=== PATIENT | female | born 1990 | race Two or more races ===

== ENCOUNTER 2020-01-09 23:59 | Emergency (ER) | payer BC ==
[~2020-01-09] VITALS: Ht 162.6 cm; Wt 77.1 kg
[2020-01-10 00:17] VITALS: BP 118/73
--- NOTE | 2020-01-10 00:18 | NUR ---
Nurse Note: Pt walked in c/o LT eye blurriness since AM. Pt stated she feels something in her LT eye. Pt stated she took her contacts out and flushed with solution but not effective. Visual acuitity completed. All safety measures met; will continue to monitor.
[2020-01-10] MEDS ORDERED: Tetracaine 0.5% Opth 4ml Soln LEFT EYE ONE (00:30)
[2020-01-10] MEDS ORDERED: Fluorescein Strips LEFT EYE ONE (00:30)
--- NOTE | 2020-01-10 00:54 | NUR ---
Nurse Note: tetracaine/fluorescin at bedside. ERMD aware and at pt bedside. All safety measures met; will continue to monitor.
[2020-01-10] MEDS ORDERED: OCUFLOX5 ML LEFT EYE (00:58)
[2020-01-10 01:05] VITALS: BP 118/73
--- NOTE | 2020-01-10 01:05 | NUR ---
ED Nurse Note: Pt cleared by health care Provider for discharge. DC instructions/prescription was given and explained to pt and verbalized understanding of teachings. All medical deviecs such as ID band removed. Pt is AAO x4, ambulatory and left with all personal belongings.
--- NOTE | 2020-01-10 01:07 | Emergency Room Report ---
History of Present Illness General Chief Complaint: Eye Problems Source: Patient Present Illness HPI 29-year-old female presents complaining of eye pain. Notes that she feels something in her left eye since this morning. Took out her contact but still feels the sensation. Dull, 5 out of 10, nonradiating. Denies any tearing or discharge. Denies any photophobia. Denies any change in visual acuity. No other aggravating relieving factors. Denies any other associated symptoms Allergies: Coded Allergies: No Known Allergies (Unverified , 01/10/20) COVID-19 Screening Contact w/high risk pt: No Recent Travel to affected area: No Experienced COVID-19 symptoms?: No COVID-19 Testing performed [employer]: No Patient History Past Medical History: none Past Surgical History: none Pertinent Family History: none Social History: Denies: smoking, alcohol use, drug use Now: No Immunizations: UTD Reviewed Nursing Documentation: PMH: Agreed; PSxH: Agreed Nursing Documentation-PMH Past Medical History: No Stated History Review of Systems All Other Systems: negative except mentioned in HPI Physical Exam Vital Signs Date Time Temp Pulse Resp B/P (MAP) Pulse Ox O2 Delivery O2 Flow Rate FiO2 01/10/20 00:06 98.4 81 16 118/73 (88) 97 Room Air Sp02 EP Interpretation: reviewed, normal General Appearance: no apparent distress, alert, GCS 15, non-toxic Head: normocephalic, atraumatic Eyes: bilateral eye normal inspection, bilateral eye PERRL, bilateral eye EOMI , bilateral eye visual acuity ENT: hearing grossly normal, normal pharynx, no angioedema, normal voice Neck: full range of motion, supple/symm/no masses Respiratory: chest non-tender, lungs clear, normal breath sounds, speaking full sentences Cardiovascular #1: regular rate, rhythm, no edema Cardiovascular #2: 2+ carotid (R), 2+ carotid (L), 2+ radial (R), 2+ radial (L) , 2+ dorsalis pedis (R), 2+ dorsalis pedis (L) Gastrointestinal: normal bowel sounds, non tender, soft, non-distended, no guarding, no rebound Rectal: deferred Genitourinary: normal inspection, no CVA tenderness Musculoskeletal: back normal, normal range of motion, gait/station normal, non- tender Neurologic: alert, motor strength/tone normal, oriented x3, sensory intact, responsive, speech normal Psychiatric: judgement/insight normal, memory normal, mood/affect normal, no suicidal/homicidal ideation Reflexes: 3+ bicep (R), 3+ bicep (L), 3+ tricep (R), 3+ tricep (L), 3+ knee (R) , 3+ knee (L) Skin: no rash Lymphatic: no adenopathy Medical Decision Making Diagnostic Impression: Primary Impression: Sensation of foreign body in eye ER Course Hospital Course 29-year-old female presents to ED with left eye pain, feel something in his eye Differential diagnoses include: conjunctivitis, traumatic iritis, foreign body, corneal abrasion Clinical course Patient placed on stretcher. After initial history, I applied tetracaine and Fluorescin to the affected eye. Using Wood's lamp I examined the eyes, no evidence of corneal abrasion. I inverted eyelid and saw no evidence of foreign body. I discussed findings with patient. No obvious foreign body identified. No evidence of corneal abrasion. Recommend avoid contact lens use at this time. Will prescribe antibiotic drops. States she will follow-up with her eye doctor. Safe for discharge for close outpatient follow-up Diagnosis - foreign body sensation in eye Stable and discharged to home with prescription for Ocuflox. Followup with PMD/ Optho. Return to ED if symptoms recur or worsen Last Vital Signs Date Time Temp Pulse Resp B/P (MAP) Pulse Ox O2 Delivery O2 Flow Rate FiO2 01/10/20 00:17 98.4 78 16 118/73 97 Room Air Status: improved Disposition: HOME, SELF-CARE Condition: Stable Scripts Ofloxacin (OCUFLOX) 5 Ml Drops 1 DROP LEFT EYE QID for 7 Days, ML Prov: Ben Romero MD 01/10/20 Referrals: Maikel Guillen MD, Maziar M.D. MD Patient Instructions: Eye Foreign Body, [id number] Ben Romero MD January 10, 2020 01:06
== END 2020-01-10 01:05 | disposition home or self-care (01) ==
LOC: EMR 01-10 00:15
DX: H57.12 Ocular pain, left eye (principal)
CPT/HCPCS: 99283